=== PATIENT | male | born 1960 | race Caucasian/White ===

== ENCOUNTER → 2022-01-25 12:52 | Outpatient (BNVA) | payer MEDICARE, SELFPAY | PROVIDERS: Referring Provider Dermatology; Visit Provider Podiatrist Foot & Ankle Surgery | DX: M77.9 Enthesopathy, unspecified (principal); M76.821 Posterior tibial tendinitis, right leg | CPT/HCPCS: 99204 ==

== ENCOUNTER → 2022-03-10 11:09 | Outpatient (BNVA) | payer MEDICARE, SELFPAY | PROVIDERS: Visit Provider Podiatrist Foot & Ankle Surgery | DX: M76.821 Posterior tibial tendinitis, right leg (principal); M72.2 Plantar fascial fibromatosis | CPT/HCPCS: 99213 ==